=== PATIENT | female | born 1995 | race Caucasian/White ===

== ENCOUNTER 2020-03-20 13:21 | Emergency (ER) | payer OTHER ==
[~2020-03-20] VITALS: Ht 154.9 cm; Wt 53.5 kg
[2020-03-20 13:27] VITALS: BP 107/70; Ht 154.9 cm; Wt 53.5 kg
== END 2020-03-20 14:12 | disposition home or self-care (01) ==
LOC: ED 13:21
DX: J03.90 Acute tonsillitis, unspecified (principal); Z88.1 Allergy status to other antibiotic agents; Z20.828 Contact with and (suspected) exposure to other viral communicable diseases
CPT/HCPCS: U0003-CS